=== PATIENT | male | born 1935 | race Caucasian/White ===

== ENCOUNTER 2024-04-02 09:02 | Emergency (ER) | payer MEDICARE, MEDICAID ==
[~2024-04-02] VITALS: Ht 162.6 cm; Wt 66.0 kg
[~2024-04-02 09:02] MED LIST: AMLO10TA80 PO; ATOR20TA65 PO; CARV3.1242 PO; CLOP75TA33 PO; GABA-529 PO; PANT40TA51 PO; TAMS-11 PO; TOPUD PO; TRAM50TA3 PO
[2024-04-02 09:08] VITALS: TEMP 98.5; O2SAT 97
[2024-04-02 11:44] VITALS: BP 130/62; PULSE 70; RESP 15
== END 2024-04-02 11:46 | disposition home or self-care (01) ==
LOC: ER 09:02
DX: R30.0 Dysuria (principal)
CPT/HCPCS: 99281